=== PATIENT | male | born 1985 | race Caucasian/White ===

== ENCOUNTER 2021-02-24 11:53 | Outpatient (RCR) | payer BC, SELFPAY | END 2021-03-31 23:59 | LOC: IMMUN 11:53 | PROVIDERS: PCP Family Medicine; Visit Provider Family Medicine | DX: Z23 Encounter for immunization (principal) | CPT/HCPCS: 0001A; 0002A; 91300 ==

== ENCOUNTER → 2022-04-27 | Outpatient (CLI) | payer BC, SELFPAY ==
--- NOTE | 2022-04-27 08:30 | US_ITS ---
STUDY: SUPERFICIAL ULTRASOUND - LEFT FOREARM. REASON FOR EXAM: Male, 36 years old. Left forearm mass x2 -- masses x2 distal and ventral - left TECHNIQUE: A superficial ultrasound was performed with real-time and static miramontes-scale imaging. COMPARISON: None. FINDINGS: The ventral aspect of the forearm was examined with ultrasound. The palpable abnormality corresponds to a 1.2 cm x 1.1 cm x 0.2 cm well-defined hypoechoic nodular density in the subcutaneous tissue. This may represent a lipoma. Biopsy is recommended. US/Ext Non Vasc Limited/Soft Tiss IMPRESSION: The palpable abnormality corresponds to 1.2 cm x 1.1 cm x 0.2 cm hypoechoic nodular area most likely representing a small lipoma. This is within the superficial subcutaneous tissue. Biopsy recommended. Electronically Signed: Juan Bruner MD at 9:17 EDT ,
== END | disposition home or self-care (01) ==
LOC: US 08:27
PROVIDERS: PCP Family Medicine; Referring Provider Surgery; Visit Provider Surgery
DX: R22.30 Localized swelling, mass and lump, unspecified upper limb (principal)
CPT/HCPCS: 76882

== ENCOUNTER 2024-11-21 19:52 | Emergency (ER) | payer BC, SELFPAY ==
[2024-11-21 19:52] VITALS: BP 145/101; PULSE 80; RESP 15; TEMP 36; O2SAT 98; BMI 20.2
--- NOTE | 2024-11-21 20:28 | EKG12_ITS ---
Test Reason : DYSRHYTHMIA Blood Pressure : */* mmHG Vent. Rate : 69 BPM Atrial Rate : 69 BPM P-R Int : 166 ms QRS Dur : 90 ms QT Int : 368 ms P-R-T Axes : 74 84 58 degrees QTcB Int : 394 ms Normal sinus rhythm Normal ECG Confirmed by SATINDER DE LEON, JOVANY ([id number]), clinical editor HALINA PARKER ([id number]) on 11/23/2024 6:34:34 AM Referred By: Confirmed By: JOVANY RAJAN MD
[2024-11-21 21:03] LABS: BNP,B-Type NATRIURETIC PEPTIDE 5.1 pg/mL (0-100)
--- NOTE | 2024-11-21 21:03 | EX.ED.DYSGE1 ---
HPI History of Present Illness Chief Complaint: Palpitations Detail of Chief Complaint: Palpitations, feels heart beating Informant: patient Onset/Context/Timing Onset: Days (Past 3 days) Context: Sudden Onset Timing: Intermittent Quality: Feels heart pounding Location: Chest Current Severity: Mild Maximum Severity: Moderate Worsened by: Nothing Relieved by: nothing Associated Symptoms Associated Symptoms: None Narrative Narrative: Patient is a 39-year-old male. He admits to 2 beers a day and marijuana use. He denies illicit drug use i.e. amphetamines heroin etc. He denies chest pressure, tightness or heaviness. He denies shortness of breath. He denies nausea, vomiting or diarrhea. He denies any other symptoms. He is concerned because he had a relative that had heart surgery for palpitations. Suspect the person had PSVT and had an ablation based on his description. Prior similar symptoms: No Recent Illness/Hospitalization: No [facility] Medical History History of torsion of testis Anxiety Back pain Home Medications ?Medication ?Instructions ?Recorded ?Last Taken ?Type NK 04/20/22 Unknown History Allergy/AdvReac Type Severity Reaction Status Date / Time No Known Allergies Allergy Verified 11/21/24 19:52 Family History Father Cancer oropharynx Heart disease Myocardial infarction Grandmother Heart disease Surgical History History of testicular surgery Social History Smoking Status: Current some day smoker tobacco type: cigarettes ROS ROS ED Constitutional Constitutional ED: Denies chills, fever(s), subjective, sweats or weight loss Eyes Eyes: Denies blurry vision or change in vision ENT ENT ED: Denies ear pain, rhinorrhea or sore throat Cardiovascular Cardiovascular: Reports palpitations; Denies chest pain, orthopnea, paroxysmal nocturnal dyspnea or racing heartbeat Respiratory/Chest Respiratory/Chest: Denies cough, dyspnea, dyspnea on exertion, orthopnea or paroxysmal nocturnal dyspnea Gastrointestinal Gastrointestinal: Denies abdominal pain, nausea or vomiting Musculoskeletal Musculoskeletal: Denies arthralgias or myalgias Integumentary Denies rash Neurologic Neurologic: Denies paresthesias or weakness Psychiatric Psychiatric: Denies anxiety or depression Endocrine Endocrinology: Denies cold intolerance or heat intolerance Hematologic/Lymphatic Hematologic/Lymphatic: Reports systems reviewed and no addt'l complaints, except as documented EXAM Physical Exam Const Vital Signs: 11/21/24 19:52 11/21/24 20:08 11/21/24 22:33 Temperature 96.8 F L 96.8 F L Temperature Source Temporal Pulse Rate 80 80 Respiratory Rate 15 15 Respiratory Effort Normal Blood Pressure 145/101 H 145/101 H Blood Pressure Mean 115 115 Pulse Ox 98 98 Oxygen Delivery Method Room Air Positive well nourished and well developed General Appearance ED: well developed and NAD; Negative for cyanotic, diaphoretic or pallor HEENT Reports moist mucous membranes HEENT Narrative: Head is atraumatic normocephalic. Ears normal. Eyes PERRL and EOMs intact bilaterally General Eye ED: Negative for pale conjunctiva or scleral icterus Neck no lymphadenopathy, supple and no JVD Resp normal respiratory effort and clear to auscultation bilaterally Cardio regular rate, regular rhythm, S1 normal heart sound, S2 normal heart sound and no murmurs GI normal to inspection, nondistended, normoactive bowel sounds, non-tender, non-distended and no masses; Negative for hepatosplenomegaly Extremity normal to inspection Neuro oriented x3 and CN's II-XII intact bilaterally Sensorium / Orientation: alert Psych mental status grossly normal Skin no rashes or lesions noted, no wounds and skin turgor normal General Skin Exam: Negative for jaundice or pallor MDM MDM MDM Narrative Medical decision making narrative: Differential diagnosis is anxiety, tachycardia, PSVT, need to evaluate with EKG determine if he has WPW or evidence for preexcitation syndrome including Lay long [place] syndrome. Electrolyte panel was obtained to assess for hypokalemia. EKG is normal. Rate of 69. Electrolyte panel is unremarkable. Lab Data Attestation: I reviewed the patient's lab results. Lab results narrative: BNP was normal. Labs: Laboratory Results - last 24 hr 11/21/24 20:18 B-Natriuretic Peptide 5.1 EKG Initial EKG: Attestation: I personally reviewed and interpreted this EKG as follows: Interpretation: Sinus Rhythm (Rate is 69. EKG is normal. VT interval is under 6 6 ms. Cures duration 90 ms. QT duration 268 ms. [place] is normal.) Discharge Plan Triage Chief Complaint: Palpitations ED Provider: Alton Serra Dx/Rx/DC Orders Clinical Impression: Heart palpitations Instructions: ED Palpitations Prescriptions: No Action NK Primary Care Provider: Chico Hamlin Referrals: Chico Hamlin MD [Primary Care Provider] - As Needed Print Language: Georgian Disposition Disposition: Home, Self Care Discharge Date/Time: 11/21/24 22:42
[2024-11-21 22:33] VITALS: BP 145/101; PULSE 80; RESP 15; TEMP 36; O2SAT 98
== END 2024-11-21 22:42 | disposition home or self-care (01) ==
PROVIDERS: Emergency Provider Emergency Medicine; PCP Family Medicine; Visit Provider Emergency Medicine
DX: R00.2 Palpitations (principal); F12.90 Cannabis use, unspecified, uncomplicated; F17.210 Nicotine dependence, cigarettes, uncomplicated
CPT/HCPCS: 83880; 93005; 99283; A4216

== ENCOUNTER 2025-08-15 09:42 | Emergency (ER) | payer BC, SELFPAY ==
[2025-08-15 09:43] VITALS: BP 138/96; PULSE 108; RESP 16; TEMP 36.3; O2SAT 96; BMI 20.2
--- NOTE | 2025-08-15 10:05 | EX.ED.DYSGE1 ---
HPI History of Present Illness Chief Complaint: Nausea/Vomiting Narrative Narrative: Patient is a 39-year-old male presenting to the emergency department for multiple complaints including nausea, vomiting, headache, palpitations and chills since this morning. Patient has no significant past medical history other than anxiety. He was last here in November for palpitations. Patient states that he was at a concert in [place] last night and was coming back around midnight when he felt nauseous and had episodes of nonbloody, nonbilious vomiting. States that about half an hour ago he developed a gradual onset headache that he states is not bad. Reports that he is had worse headaches in the past. He rates it at a 5 out of 10. He denies any visual changes, focal numbness or weakness, fevers. Reports that he did drink a significant amount last night of [place] and Coke, red bull and cocaine. Patient reports that he is having intermittent palpitations which she has had since the summer. He denies any chest pain or shortness of breath. Denies any diaphoresis. He denies abdominal pain, diarrhea, dysuria or hematuria. Denies any falls or head trauma. [facility] Medical History History of torsion of testis Anxiety Back pain Home Medications ?Medication ?Instructions ?Recorded ?Last Taken ?Type ondansetron 4 mg disintegrating 4 mg PO Q8H PRN PRN Nausea #10 tabs 08/15/25 Unknown Rx tablet Allergy/AdvReac Type Severity Reaction Status Date / Time No Known Allergies Allergy Verified 08/15/25 09:42 Family History Father Cancer oropharynx Heart disease Myocardial infarction Grandmother Heart disease Surgical History History of testicular surgery Social History Smoking Status: Current some day smoker tobacco type: cigarettes ROS ROS ED ROS Narrative See HPI EXAM Physical Exam Narrative Exam Narrative: Vital signs: Reviewed General: Alert and oriented x 3. No acute distress HEENT: Head is normocephalic and atraumatic, sinuses nontender, pinpoint pupils equal round and reactive. Nares are patent. Oropharynx and throat exams normal. Neck: Supple without lymphadenopathy nontender. No nuchal rigidity. Normal active full range of motion of the neck. Cardiovascular: Mildly tachycardic rate and rhythm, no murmurs. No rubs or gallops. Normal S1 and S2 Respiratory: Clear to auscultation bilaterally. No wheezes, rales, rhonchi Abdominal: Soft and nontender to palpation throughout. Normal bowel sounds. No guarding or rebound. Nonsurgical abdomen Extremities: No tenderness. No bruising. Normal range of motion. Normal sensation. Skin: No rash or redness. Neurological: Cranial nerves II through XII are grossly intact. Normal strength and sensation. Normal cerebellar function The rest of the physical exam is unremarkable Const Vital Signs: 08/15/25 09:43 08/15/25 11:22 08/15/25 12:29 Temperature 97.3 F L 98.2 F Temperature Source Temporal Pulse Rate 108 H 79 71 Respiratory Rate 16 18 Blood Pressure 138/96 H 132/100 H Blood Pressure Mean 110 110 Pulse Ox 96 99 Oxygen Delivery Method Room Air MDM MDM MDM Narrative Medical decision making narrative: Patient is a 39-year-old male presenting to the emergency department for multiple complaints including a headache, palpitations, nausea and vomiting. Patient was seen and examined. Vitals are stable. Patient resting bed comfortably in no acute distress. He is accompanied by both of his parents at bedside. Patient used significant alcohol and drugs last night at the concert which could be contributing to his symptoms. Has baseline palpitations and both of these could worsen his palpitations. He has no chest pain or shortness of breath. In terms of his headache. He states it came on gradually and is not the worst headache he has had. He has no nuchal rigidity or fevers. I am not concerned about meningitis or encephalitis. Not concerned about a subarachnoid hemorrhage. I will fluid resuscitate the patient and treat his symptoms with Toradol and Zofran. Will also obtain an EKG to evaluate for any cardiac dysrhythmias. Will obtain electrolytes given his episodes of vomiting this morning. He has no abdominal pain on exam. I do not think he needs a CT of his abdomen at this time. The nausea and vomiting just started this morning after significant alcohol and drug use. EKG shows normal sinus rhythm at a rate of 79, no ischemic changes. No dysrhythmia. BMP with bicarb of 20.4 and anion gap of 16. Otherwise no significant abnormalities. Consistent with his nausea and vomiting and dehydration suspected. Chest x-ray reviewed by myself, no acute findings seen. Radiology read in agreement. Patient reevaluated after fluid bolus, Zofran and Toradol. States he is feeling much better. Headache is much improved. He has had no episodes of vomiting here. Abdominal exam is still unremarkable. He was able to tolerate p.o. The lab and EKG findings were discussed with patient and father at bedside. I educated the patient that drug and alcohol use can worsen underlying palpitations. Will discharge home with Zofran prescription. Recommended abstaining from the substances and following up with primary care doctor for possible Holter monitor if he continues to have palpitations. Patient discharged from the Emergency Department. I do not feel that the patient's evaluation reveals any acute reason for admission at this time. I instructed them to either follow-up with their primary care physician or promptly return to the Emergency Department for reevaluation should symptoms worsen or new symptoms develop. I explained what symptoms would indicate the need to return to the emergency department. Shared decision making was used. The patient voiced understanding of the treatment plan and is agreeable with it. Clinical impression Palpitations Headache Nausea and vomiting History & Record Review Discussion w/independent historian: Patient and Family Additional record(s) reviewed:: Prior labs Lab Data Attestation: I reviewed the patient's lab results. Labs: Laboratory Results - last 24 hr 08/15/25 10:35 Sodium 138 Potassium 3.9 Chloride 102 Carbon Dioxide 20.4 L Anion Gap 16 H BUN 5 Creatinine 0.74 Estim Creat Clear Calc 120.22 Est GFR (MDRD) Non-Af 120 BUN/Creatinine Ratio 6.5 L Glucose 93 Calcium 9.8 Radiography Diagnostic Testing: Clinical Impression(s) from Imaging Studies Chest X-Ray 08/15/25 10:55 IMPRESSION: No acute cardiopulmonary process. Reading Location: [id number] Discharge Plan Triage Chief Complaint: Nausea/Vomiting ED Provider: Fabienne Crump Dx/Rx/DC Orders Clinical Impression: Nausea & vomiting, Drug use, Headache, Heart palpitations Instructions: Self-Care for Headaches, ED Heart Palpitations, ED Vomiting (Adult) Prescriptions: New ondansetron 4 mg tablet,disintegrating 4 mg PO Q8H PRN PRN (Reason: Nausea) Qty: 10 0RF Primary Care Provider: Care Physician,No Primary Referrals: Freda Jacques MD [Med Staff - Dev Manager, Internal Medicine] - As soon as possible NOT,DEFINED [Non-Staff, None] Activity Restrictions/Additional Instructions: I sent Zofran to your pharmacy you can take this every 8 hours as needed for nausea and vomiting. Please drink lots of fluids at home. Abstain from using drugs or alcohol. Your evaluation in the Emergency Department did not reveal any acute reason for admission. However, I want to emphasize that you may be early in the course of a disease process or illness even if it is not present. For this reason you should follow-up within 24 hours for reevaluation with either your primary care physician or if necessary back here in the Emergency Department. You should return to the Emergency Department immediately if your symptoms worsen or new symptoms develop. Print Language: Tunisian Disposition Disposition: Home, Self Care Discharge Date/Time: 08/15/25 12:34
--- NOTE | 2025-08-15 10:17 | EKG12_ITS ---
Test Reason : NAUSEA
[2025-08-15] MEDS: 0.9% Normal Saline (1000mL) 1,000 ML 1000 ML IV (10:43)
--- NOTE | 2025-08-15 10:55 | RAD_ITS ---
RAD/Chest PA and Lateral
[2025-08-15 11:20] LABS: Anion Gap 16 (5-15); BUN 5 mg/dL (4-19); BUN/Creat Ratio 6.5 RATIO (10-20); Calcium,Total 9.8 mg/dL (7.6-11.0); Carbon Dioxide 20.4 mmol/L (21.0-32.0); Chloride 102 mmol/L (98-108); Estimated Creatinine Clearance 120.22 ml/min (50-250); Glucose 93 mg/dL (70-99); Potassium 3.9 mmol/L (3.3-5.1)
[2025-08-15 11:22] VITALS: PULSE 79
[2025-08-15 12:29] VITALS: BP 132/100; PULSE 71; RESP 18; TEMP 36.8; O2SAT 99
== END 2025-08-15 12:34 | disposition home or self-care (01) ==
PROVIDERS: Emergency Provider Student in an Organized Health Care Education/Training Program; Visit Provider Student in an Organized Health Care Education/Training Program
DX: R11.2 Nausea with vomiting, unspecified (principal); R00.2 Palpitations; R51.9 Headache, unspecified; F17.210 Nicotine dependence, cigarettes, uncomplicated; F10.90 Alcohol use, unspecified, uncomplicated; F14.90 Cocaine use, unspecified, uncomplicated
CPT/HCPCS: 71046; 80048; 93005; 96361; 96374; 96375; 99284; A4216; J2405